=== PATIENT | male | born 1950 | race American Indian/Alaskan Native ===

== ENCOUNTER 2018-09-02 23:37 | Emergency (ER) | payer MEDICARE ==
[2018-09-03 00:32] LABS: BUN/Creatinine Ratio 9; Blood Urea Nitrogen 11 mg/dL (9-20); Calcium 9.4 mg/dL (8.4-10.2)
[2018-09-03 00:33] LABS: Hemolysis Index 19
[2018-09-03 00:35] LABS: Basophils % (Auto) 0.5 % (0.0-1.8); Eosinophils # (Auto) 0.1 K/mm3 (0.0-0.4); Eosinophils % (Auto) 1.6 % (0.0-4.3); Lymphocytes # (Auto) 1.4 K/mm3 (1.2-5.4); Lymphocytes % (Auto) 24.5 % (13.4-35.0); Mean Corpuscular HGB Conc 33 % (32-34); Mean Corpuscular Volume 100 fl (84-94); Monocytes # (Auto) 0.6 K/mm3 (0.0-0.8); Monocytes % (Auto) 9.5 % (0.0-7.3); Platelet Count 187 K/mm3 (140-440); Red Cell Distribution Width 12.5 % (13.2-15.2)
--- NOTE | 2018-09-03 02:38 | Emergency Department Report ---
- General Chief complaint: Extremity Problem,Nontraumatic Stated complaint: KNOT ON L LEG Time Seen by Provider: 09/03/18 02:31 Source: patient Mode of arrival: Ambulatory Limitations: No Limitations - History of Present Illness Initial comments: Patient is 67 years old male with history of HIV, compliant with his medication. Patient presented to the ER complaining of localized swelling and tenderness to the upper anterior leg for the last 2 days. Patient denied any fever or trauma. Patient denies any nausea or vomiting. MD complaint: abscess/boil, lesion -: days(s) (2) Tetanus Up to Date: yes Location: LLE Severity: moderate Quality: sharp Consistency: constant Associated symptoms: denies other symptoms - Related Data Allergies Allergy/AdvReac Type Severity Reaction Status Date / Time No Known Allergies Allergy Unverified 09/02/18 23:43 Abscess Boil HPI - HPI Chief Complaint: Extremity Problem,Nontraumatic Stated Complaint: KNOT ON L LEG Time Seen by Provider: 09/03/18 02:31 Allergies/Adverse Reactions: Allergies Allergy/AdvReac Type Severity Reaction Status Date / Time No Known Allergies Allergy Unverified 09/02/18 23:43 ED Review of Systems ROS: Stated complaint: KNOT ON L LEG Other details as noted in HPI Comment: All other systems reviewed and negative Constitutional: denies: chills, fever Respiratory: denies: cough, shortness of breath, SOB with exertion Cardiovascular: denies: chest pain Gastrointestinal: denies: abdominal pain Musculoskeletal: denies: back pain Skin: lesions ED Past Medical Hx - Past Medical History Previous Medical History?: Yes Hx Psychiatric Treatment: Yes (depression) Hx HIV: Yes Additional medical history: hyperlipidemia, overactive bladder - Surgical History Past Surgical History?: No - Social History Smoking Status: Never Smoker Substance Use Type: None ED Physical Exam - General Limitations: No Limitations General appearance: alert, in no apparent distress - Head Head exam: Present: atraumatic, normocephalic, normal inspection - Eye Eye exam: Present: normal appearance - ENT ENT exam: Present: normal exam, normal orophraynx, mucous membranes moist - Neck Neck exam: Present: normal inspection, full ROM. Absent: tenderness, meningismus, lymphadenopathy, thyromegaly - Respiratory Respiratory exam: Present: normal lung sounds bilaterally - Cardiovascular Cardiovascular Exam: Present: regular rate, normal rhythm, normal heart sounds - GI/Abdominal GI/Abdominal exam: Present: soft, normal bowel sounds. Absent: distended, tenderness, guarding, rebound, rigid - Extremities Exam Extremities exam: Present: normal inspection, full ROM, normal capillary refill - Back Exam Back exam: Present: normal inspection, full ROM. Absent: CVA tenderness (R), CVA tenderness (L), muscle spasm, paraspinal tenderness - Neurological Exam Neurological exam: Present: alert, oriented X3, CN II-XII intact, normal gait, reflexes normal - Skin Skin exam: Present: warm, intact, normal color, other (3x3 cm area of swelling,redness and warm, non flucruant to the left leg.) ED Course Vital Signs 09/02/18 23:43 Temperature 97.8 F Pulse Rate 77 Respiratory 16 Rate Blood Pressure 127/73 O2 Sat by Pulse 98 Oximetry ED Medical Decision Making - Lab Data Result diagrams: 09/03/18 00:04 09/03/18 00:04 Critical care attestation.: If time is entered above; I have spent that time in minutes in the direct care of this critically ill patient, excluding procedure time. ED Disposition Clinical Impression: Cellulitis Disposition: DC-01 TO HOME OR SELFCARE Is pt being admited?: No Condition: Stable Instructions: Cellulitis (ED) Referrals: [facility] [Provider Group] - 3-5 Days
[2018-09-03 03:04] VITALS: BP 124/76
== END 2018-09-03 03:15 | disposition home or self-care (01) ==
LOC: ED 23:37
DX: L03.116 Cellulitis of left lower limb (principal); E78.5 Hyperlipidemia, unspecified; Z21 Asymptomatic human immunodeficiency virus [HIV] infection status
CPT/HCPCS: 36415; 80048; 85025; 99283

== ENCOUNTER 2021-10-11 08:33 | Outpatient (CLI) | payer MEDICARE ==
--- NOTE | 2021-10-11 10:14 | Cat Scan Report ---
CT ABDOMEN AND PELVIS WITHOUT CONTRAST HISTORY: C61 MALIGNANT NEOPLASM OF PROSTATE COMPARISON: None. TECHNIQUE: Axial CT images were obtained through the abdomen and pelvis without IV contrast. Sagittal and coronal reformatted images. All CT scans at this location are performed using CT dose reduction for ALARA by means of automated exposure control. FINDINGS: CT ABDOMEN: Lung Bases: There are 3 suspicious nodular densities in the left lower lobe. A 7 mm subpleural nodule is identified in the posterior left lower lobe on image 1, series 2. A 0.7 cm nodule is identified i n the lateral left lower lobe on image 15. A 1.5 cm nodule is identified just above the left hemidiap hragm on image 15. The right lung base is clear. Liver: No significant abnormality. Biliary: No significant abnormality. Spleen: No significant abnormality. Unenlarged. Pancreas: No significant abnormality. Adrenals: No significant abnormality. Kidneys: There are a few punctate calyceal stones in both kidneys. No ureteral stones or hydronephros is. No focal renal lesion. Lymphatics: No pathologic lymphadenopathy is detected. Vasculature: No significant abnormality. Bowel/Peritoneum: No significant abnormality. No free air. No free fluid. Normal appendix. There is m oderate fecal retention throughout the colon. CT PELVIS: : The prostate gland measures 4.5 cm in diameter. The bladder and distal ureters are unremarkable. Osseous Structures: No suspicious bony lesion or fracture is identified. Mild degenerative changes in the lower lumbar spine are noted. Additional Findings: None IMPRESSION: There are 3 suspicious nodular densities in the left lower lobe as described above. A metastatic proc ess cannot be excluded. Due to location these are likely not amenable to percutaneous biopsy. Conside r further evaluation with CT chest with contrast. No evidence for mass, adenopathy or bony lesion in the abdomen or pelvis. Bilateral nonobstructing nephrolithiasis as described. Constipation. Signer Name: Patric Ha Jr, MD Signed: 10/11/2021 10:09 AM Workstation Name: [id number]
--- NOTE | 2021-10-11 12:26 | Nuclear Medicine Report ---
NUCLEAR MEDICINE BONE SCAN, WHOLE BODY INDICATION: C61 MALIGNANT NEOPLASM OF PROSTATE. TECHNIQUE: 26.2 mCi of Tc-99m MDP were injected IV. Whole body images were obtained. COMPARISON: CT abdomen pelvis without contrast performed the same day.. FINDINGS: Skeletal Structures: Fairly symmetric, likely degenerative uptake is present involving the shoulders , sternoclavicular joints and thoracic spine. Skeletal Lesions: None. Soft Tissues: Normal. Kidneys: Normal, symmetric activity. Additional Findings: None. IMPRESSION: No evidence for osseous metastasis.. Signer Name: Patric Ha Jr, MD Signed: 10/11/2021 12:15 PM Workstation Name: [id number]
== END 2021-10-11 08:34 | disposition home or self-care (01) ==
LOC: NM 08:33
PROVIDERS: ATTEND Urology
DX: C61 Malignant neoplasm of prostate (principal); N20.0 Calculus of kidney; R59.0 Localized enlarged lymph nodes; M47.816 Spondylosis without myelopathy or radiculopathy, lumbar region
CPT/HCPCS: 74176; 78306; A9503

== ENCOUNTER 2021-10-27 14:15 | Outpatient (CLI) | payer MEDICARE ==
[2021-10-27 15:42] LABS: Blood Urea Nitrogen 15 mg/dL (9-20)
--- NOTE | 2021-10-27 16:58 | Cat Scan Report ---
CT CHEST WITHOUT AND WITH CONTRAST INDICATION / CLINICAL INFORMATION: MALIGNANT NEOPLASM OF PROSTATE. TECHNIQUE: Axial CT images were obtained through the chest before and after IV contrast. All CT scans at this location are performed using CT dose reduction for ALARA by means of automated exposure cont rol. COMPARISON: CT abdomen 10/11/2021. No prior CTs of the chest. FINDINGS: HEART: No significant abnormality. CORONARY ARTERY CALCIFICATION: Absent -- None. THORACIC AORTA: No significant abnormality. MEDIASTINUM / LINO: No significant abnormality. PLEURA: No pleural effusion. No pneumothorax. LUNGS: Previously seen 7 mm subpleural nodule in the posterior left lower lobe measures 1.2 cm. This was incompletely included on the prior exam 7 is difficult to know if it has increased in size. More inferior somewhat spiculated nodule in the left lower lobe measures 1.5 cm, unchanged. Finally, a thi rd nodular density within the lateral left lower lobe measures 1.1 cm (previously 7 mm). There is a 3 mm nodule in the posterior right lung apex on axial series 5 image 19. ADDITIONAL FINDINGS: None. UPPER ABDOMEN: No significant abnormality. SKELETAL SYSTEM: No significant abnormality. IMPRESSION: 1. 1.5 cm somewhat spiculated nodule in the left lung base is stable. More lateral 1.1 cm nodule has increased in size since the prior. The more posterior superior nodule which was incompletely included on the prior exam measures larger but this may be due to incomplete inclusion on the prior CT abdome n. This would be an unusual manifestation of prostate metastatic disease given the lack of metastatic disease within the abdomen/pelvis or skeletal system. Primary differential considerations include in flammatory/infectious process, primary pulmonary neoplastic process, or developing scar/early round a telectasis. CT/PET would likely not be useful at this time given that both neoplastic and inflammator y/infectious processes can demonstrate increased tracer activity. Repeat imaging should be performed in 2-3 months which would give a larger interval to determine if these are in fact continuing to grow . If they do, biopsy at that time should be considered. 2. Punctate 3 mm nodule posterior right lung apex. Signer Name: Xavier Cordova MD Signed: 10/27/2021 4:54 PM Workstation Name: [id number]
== END 2021-10-27 14:16 | disposition home or self-care (01) ==
LOC: CT 14:15
PROVIDERS: ATTEND Urology
DX: C61 Malignant neoplasm of prostate (principal); R91.1 Solitary pulmonary nodule
CPT/HCPCS: 36415; 71270; 82565; 84520; Q9967